=== PATIENT | male | born 1950 | race Caucasian/White ===

== ENCOUNTER 2021-01-03 10:08 | Inpatient (IN) | payer MEDICARE ==
[~2021-01-03] VITALS: Ht 177.8 cm; Wt 89.8 kg
[2021-01-03 11:57] LABS: HCT (SEDRATE) 42.8 % (39.2-51.8)
[2021-01-03 11:59] LABS: BASOPHILS % (AUTO) 1 % (0-1); EOSINOPHILS % (AUTO) 2 % (1-7); LYMPHOCYTES % (AUTO) 19 % (22-44); MEAN CORPUSCULAR HGB CONC 34.4 g/dL (33.2-36.2); MEAN PLATELET VOLUME 9.4 fL (7.4-10.4); MONOCYTES % (AUTO) 9 % (2-9); NEUTROPHILS % (AUTO) 69 % (42-75); PLATELET COUNT 208 x10^3/uL (130-400); RED BLOOD COUNT 4.53 x10^6/uL (4.38-5.82); RED CELL DISTRIBUTION WIDTH 14.5 % (9.4-14.8)
[2021-01-03 12:03] LABS: ALBUMIN 3.4 g/dL (3.4-5.0); ANION GAP 7 mmol/L (5-15); C-REACTIVE PROTEIN, QUANT 0.34 mg/dL (0.02-0.49); CHLORIDE 103 mmol/L (98-107)
[2021-01-03 12:06] LABS: ALANINE AMINOTRANSFERASE 35 U/L (12-78); ALKALINE PHOSPHATASE 100 U/L (45-117); BILIRUBIN,TOTAL 1.4 mg/dL (0.2-1.0); CREATININE 1.07 mg/dL (0.7-1.3); TOTAL PROTEIN 7.7 g/dL (6.4-8.2)
--- NOTE | 2021-01-03 18:21 | NUR ---
PT WC'D TO ROOM 18 FROM [facility] FOR C/O BILAT LEG WEAKNESS, NUMBNESS X 2-3 WEEKS. PT STATES IT STARTED AFTER PT WAS PLACED ON A DIURETIC. PT STATES HE IS ALSO UNABLE TO WALK AFTER BEING PLACED ON MEDICATION. PT STATES HE HAS BEEN SEEN TWICE FOR THIS ISSUE AND WAS SENT HOME. PT STATES HE WAS TOLD TO F/U W/ VASCULAR. PT RESTING ON GURNEY. NADN. MONITORS APPLIED. VSS. WARM BLANKET PROVIDED. CALL LIGHT IN REACH. ERP DR. FORMAN AT BEDSIDE FOR EVAL.
[2021-01-03] MEDS ORDERED: MULT-658 PO (18:29)
[2021-01-03] MEDS ORDERED: TURM500C4 PO (18:29)
[2021-01-03 18:42] LABS: MICROSCOPIC NOT IND
--- NOTE | 2021-01-03 18:59 | NUR ---
HOSPITAL BED ORDERED FOR PT.
--- NOTE | 2021-01-03 20:09 | NUR ---
PT RESTING ON GURNEY. NADN. KAUR.
[2021-01-03] MEDS ORDERED: ENALAPRILAT 1.25 MG/ML, 2ML IVPush PRN (20:30)
[2021-01-03] MEDS ORDERED: DOCUSATE 100 MG CAPSULE PO PRN (20:30)
[2021-01-03] MEDS ORDERED: LIDODERM 5% PATCH TD PRN (20:30)
[2021-01-03] MEDS ORDERED: MELATONIN 5 MG TABLET PO PRN (20:30)
--- NOTE | 2021-01-03 21:13 | NUR ---
REPORT GIVEN TO JOSE RAUL AHUMADA RN. ALL QUESTIONS ANSWERED. AWAITING PT TRANSPORT.
--- NOTE | 2021-01-03 21:15 | NUR ---
REPORT GIVEN TO TOM FREDERICK RN.
--- NOTE | 2021-01-03 21:36 | NUR ---
PT TRANFERRED TO FLOOR ROOM TAKEN BY
[2021-01-03 22:32] VITALS: BP 173/91
[2021-01-03 23:03] VITALS: BP 149/78
[2021-01-04 02:00] VITALS: BP 164/91
[2021-01-04 06:45] LABS: ANION GAP 8 mmol/L (5-15); CALCIUM 8.7 mg/dL (8.5-10.1); CHLORIDE 106 mmol/L (98-107)
[2021-01-04 06:54] LABS: BASOPHILS % (AUTO) 1 % (0-1); EOSINOPHILS % (AUTO) 3 % (1-7); LYMPHOCYTES % (AUTO) 28 % (22-44); MEAN CORPUSCULAR HEMOGLOBIN 32.9 pg (27.5-34.5); MEAN CORPUSCULAR HGB CONC 34.5 g/dL (33.2-36.2); MEAN PLATELET VOLUME 9.4 fL (7.4-10.4); MONOCYTES % (AUTO) 10 % (2-9); NEUTROPHILS % (AUTO) 59 % (42-75); PLATELET COUNT 192 x10^3/uL (130-400); RED BLOOD COUNT 4.28 x10^6/uL (4.38-5.82); RED CELL DISTRIBUTION WIDTH 14.7 % (9.4-14.8)
[2021-01-04 06:58] LABS: CREATININE 0.99 mg/dL (0.7-1.3)
[2021-01-04 07:16] VITALS: BP 132/84
[2021-01-04] MEDS: SPIRONOLACTONE 25 MG TABLET PO SCH (11:41)
[2021-01-04] MEDS: OXYcodone IR 5MG TABLET PO PRN ×2 (11:42→16:19)
[2021-01-04] MEDS: FUROSEMIDE 20 MG TABLET PO SCH (11:43)
[2021-01-04] MEDS: LOSARTAN 25MG TABLET PO SCH (11:43)
[2021-01-04 14:00] VITALS: BP 155/88
[2021-01-04] MEDS ORDERED: GADOTERATE 7.5 MMOL/15ML SYR ONE (19:46)
[2021-01-04 20:23] VITALS: BP 164/84
[2021-01-05 03:05] VITALS: BP 132/62
[2021-01-05 07:46] VITALS: BP 153/83
[2021-01-05] MEDS: FUROSEMIDE 20 MG TABLET PO SCH (07:49)
[2021-01-05] MEDS: SPIRONOLACTONE 25 MG TABLET PO SCH (07:50)
[2021-01-05] MEDS: LOSARTAN 25MG TABLET PO SCH (07:50)
[2021-01-05 14:33] VITALS: BP 155/92
[2021-01-05] MEDS: PREGABALIN 75 MG CAPSULE PO SCH ×3 (14:40→20:09)
[2021-01-05 20:11] VITALS: BP 144/73
[2021-01-06 01:35] VITALS: BP 144/74
[2021-01-06 05:36] LABS: INTERNATIONAL NORMALIZED RATIO 1.26 (0.93-1.1); PROTHROMBIN TIME 13.3 Seconds (9.6-11.5)
[2021-01-06] MEDS: OXYcodone IR 5MG TABLET PO PRN (06:16)
[2021-01-06] MEDS: PREGABALIN 75 MG CAPSULE PO SCH ×2 (08:21→16:59)
[2021-01-06] MEDS: FUROSEMIDE 20 MG TABLET PO SCH (08:21)
[2021-01-06] MEDS: LOSARTAN 25MG TABLET PO SCH (08:22)
[2021-01-06] MEDS: SPIRONOLACTONE 25 MG TABLET PO SCH (08:22)
[2021-01-06 08:23] VITALS: BP 152/88
[2021-01-06] MEDS ORDERED: HYDROcodone/APAP 5/325 TABLET PO PRN (10:00)
[2021-01-06 13:00] VITALS: BP 150/88
[2021-01-06] MEDS ORDERED: LIDOCAINE 1%, 10ML ONE (13:32)
[2021-01-06] MEDS ORDERED: FLUMAZENIL 0.1 MG/1 ML, 5ML ONE (13:38)
[2021-01-06] MEDS ORDERED: NALOXONE 1 MG/ML, 2ML ONE (13:38)
[2021-01-06] MEDS ORDERED: FENTANYL PF 100 MCG/2ML ONE (13:38)
[2021-01-06] MEDS ORDERED: MIDAZOLAM 1 MG/ML, 5ML ONE (13:38)
[2021-01-06] MEDS ORDERED: PREG75CA PO (16:12)
[2021-01-06] MEDS ORDERED: SPIR50TA PO (16:12)
[2021-01-06] MEDS ORDERED: FURO40TA6 PO (16:12)
[2021-01-06] MEDS ORDERED: LOSA25TA25 PO (16:12)
[2021-01-06] MEDS ORDERED: HYDR-2214 PO (16:23)
[2021-01-07] MEDS ORDERED: FUROSEMIDE 40 MG TABLET PO SCH (09:00)
[2021-01-07] MEDS ORDERED: SPIRONOLACTONE 50 MG TABLET PO SCH (09:00)
== END 2021-01-06 18:59 | DRG 315 ==
LOC: ED 11:00 → INTOOBSV 18:50 → OBSVTOIN 18:50 → EDIP 18:50 → 4NW 21:47
PROVIDERS: ADMIT Internal Medicine; ATTEND Hospitalist
PROC: 0T9B70Z Drainage of Bladder with Drainage Device, Via Natural or Artificial Opening (ICD-10-PCS; 2021-01-03)
PROC: 0FJ03ZZ Inspection of Liver, Percutaneous Approach (ICD-10-PCS; principal; 2021-01-06)
PROC: B543ZZA Ultrasonography of Right Jugular Veins, Guidance (ICD-10-PCS; 2021-01-06)
PROC: B51 Imaging, Veins, Fluoroscopy (ICD-10-PCS; 2021-01-06)
DX: T82.868A Thrombosis due to vascular prosthetic devices, implants and grafts, initial encounter (principal); K76.6 Portal hypertension; R18.8 Other ascites; R26.9 Unspecified abnormalities of gait and mobility; E03.8 Other specified hypothyroidism; G62.9 Polyneuropathy, unspecified; I10 Essential (primary) hypertension; K74.60 Unspecified cirrhosis of liver; M48.061 Spinal stenosis, lumbar region without neurogenic claudication; R29.6 Repeated falls; R73.03 Prediabetes; Z66 Do not resuscitate; W18.30XA Fall on same level, unspecified, initial encounter; Y83.8 Other surgical procedures as the cause of abnormal reaction of the patient, or of later complication, without mention of misadventure at the time of the procedure; E80.6 Other disorders of bilirubin metabolism; F10.20 Alcohol dependence, uncomplicated; L40.9 Psoriasis, unspecified; Y93.89 Activity, other specified; Y92.89 Other specified places as the place of occurrence of the external cause; Y99.8 Other external cause status; Z88.0 Allergy status to penicillin; Z88.1 Allergy status to other antibiotic agents
CPT/HCPCS: 36415; 37183; 72157; 72158; 76700; 80048; 80053; 81003; 82550; 83036; 83735; 84439; 84443; 85025; 85610; 85651; 86140; 93005; 99156; 99157; 99285; G0378; J2250; J3010; A9575; C1894; J2310